=== PATIENT | female | born 1950 | race Two or more races ===

== ENCOUNTER → 2016-09-07 | Day surgery (SDC) | payer MEDICARE ==
[2016-09-07] VITALS (11 sets, daily range): BP systolic 118–145; BP diastolic 68–78
[~2016-09-07] VITALS: Ht 165.1 cm; Wt 72.6 kg
[~2016-09-07] MED LIST: Bacitracin 50000 Units Vial ONE; Betadine 10% Oint 15gm TOPIC ONE; Bupivacaine 0.25% Inj 30ml INJ ONE; Dexamethasone 4mg/ml vial ONE; DiphenhydrAMINE 50mg/ml Inj IVP PRN; DiphenhydrAMINE 50mg/ml Inj ONE; Hydromorphone 0.5mg/0.5ml inj IVP PRN; IBUPROFEN600 MG ORAL; Ketorolac 30mg Inj IV PRN; Ketorolac 30mg Inj ONE; LORazepam Inj 2mg/ml 1ml IV PRN; LR 1000ml 1,000 ML IVLG SCH; LR 1000ml ONE; Lidocaine 1% Plain 30 ml INJ ONE; Metoclopramide 10mg/2ml Inj IVP PRN; Midazolam 2mg/2ml Inj ONE; NS Irrig 1000ml ONE; Propofol 10mg/ml 20ml IV ONE; Sterile Water Irrig 1000ml IRRIG ONE; ceFAZolin sod 1 GM in NS 55 ML IVPB ONE; fentaNYL 100 mcg/2 mL IV ONE; fentaNYL 100 mcg/2 mL IV PRN
[2016-09-07 09:20] LABS: EOSINOPHILS % (AUTO) 1.5 % (0.0-3.0); LYMPHOCYTES % (AUTO) 24.5 % (20.0-45.0); MEAN CORPUSCULAR HEMOGLOBIN 30.8 PG (27.0-31.0); MEAN CORPUSCULAR HGB CONC 32.4 G/DL (32.0-36.0); MEAN CORPUSCULAR VOLUME 95 FL (80-99); MONOCYTES % (AUTO) 7.6 % (1.0-10.0); NEUTROPHILS % (AUTO) 65.5 % (45.0-75.0); PLATELET COUNT 268 K/UL (150-450); RED CELL DISTRIBUTION WIDTH 12.7 % (11.6-14.8); WHITE BLOOD COUNT 7.5 K/UL (4.8-10.8)
[2016-09-07 09:34] LABS: PROTHROMBIN TIME 9.8 SEC (9.30-11.50)
[2016-09-07 09:42] LABS: ANION GAP 13 (5-15); CALCIUM 9.5 mg/dL (8.6-10.2); CARBON DIOXIDE 29 mEQ/L (20-30); CHLORIDE 102 mEQ/L (98-107); CREATININE 0.8 mg/dL (0.5-0.9); GLOMERULAR FILTRATION RATE > 60 mL/min (>60); HEMOLYSIS 1; POTASSIUM 4.1 mEQ/L (3.4-4.9); SODIUM 144 mEQ/L (135-145)
--- NOTE | 2016-09-07 10:15 | Diagnostic Imaging Report ---
Indication: Pain Comparison: None Findings: 3 views of the left foot were obtained. No acute fractures, malalignment, erosions or periostitis are identified. Bone mineralization is within normal limits. Soft tissues are unremarkable. Impression: No acute findings
--- NOTE | 2016-09-07 11:34 | Anethesia Preoperative Eval ---
Anesthesia Pre-op PMH/ROS General Date of Evaluation: Sep 07, 2016 Anesthesiologist: Stanton ASA Score: ASA 2 Mallampati Score Class I : Soft palate, uvula, fauces, pillars visible Class II: Soft palate, uvula, fauces visible Class III: Soft palate, base of uvula visible Class IV: Only hard plate visible Mallampati Classification: Class II Surgeon: Yara Diagnosis: Left hammertoes #2,4 Surgical Procedure: Left hammertoe correction #2 and #4 Anesthesia History: none Family History: no anesthesia problems Allergies: Coded Allergies: No Known Allergies (Unverified , 09/06/16) Medications: see eMAR Past Medical History Cardiovascular: Denies: CAD, HTN, MT, arrhythmia, other, valve dz Pulmonary: Denies: COPD, DEVORAH, asthma, other Gastrointestinal/Genitourinary: Denies: CRI, ESRD, GERD, other Neurologic/Psychiatric: Denies: CVA, TIA, dementia, depression/anxiety, other Endocrine: Denies: DM, hypothyroidism, other, steroids HEENT: Denies: RUBY (L), RUBY (R), cataract (L), cataract (R), glaucoma, other Hematology/Immune: Denies: DVT, anemia, bleeding disorder, other Musculoskeletal/Integumentary: Reports: OA, Denies: DDD, DJD, RA, edema, other PSxH Narrative: C/s, right foot sx Anesthesia Pre-op Phys. Exam Physician Exam Last Vital Signs Date Time Temp Pulse Resp B/P Pulse Ox O2 Delivery O2 Flow Rate FiO2 09/07/16 08:31 98.0 70 16 143/78 99 Room Air Constitutional: NAD Cardiovascular: RRR Respiratory: CTA Airway Exam Mallampati Score: Class II MO: full ROM: full Teeth: intact Anesthesia Pre-op A/P Labs Hematology Test 09/07/16 09:00 White Blood Count 7.5 K/UL (4.8-10.8) Red Blood Count 4.90 M/UL (4.20-5.40) Hemoglobin 15.1 G/DL (12.0-16.0) Hematocrit 46.6 % (37.0-47.0) Mean Corpuscular Volume 95 FL (80-99) Mean Corpuscular Hemoglobin 30.8 PG (27.0-31.0) Mean Corpuscular Hemoglobin Concent 32.4 G/DL (32.0-36.0) Red Cell Distribution Width 12.7 % (11.6-14.8) Platelet Count 268 K/UL (150-450) Mean Platelet Volume 6.0 FL (6.5-10.1) L Neutrophils (%) (Auto) 65.5 % (45.0-75.0) Lymphocytes (%) (Auto) 24.5 % (20.0-45.0) Monocytes (%) (Auto) 7.6 % (1.0-10.0) Eosinophils (%) (Auto) 1.5 % (0.0-3.0) Basophils (%) (Auto) 1.0 % (0.0-2.0) Coagulation Test 09/07/16 09:00 Prothrombin Time 9.8 SEC (9.30-11.50) Prothromb Time International Ratio 1.0 (0.9-1.1) Activated Partial Thromboplast Time 27 SEC (23-33) Chemistry Test 09/07/16 09:00 Sodium Level 144 mEQ/L (135-145) Potassium Level 4.1 mEQ/L (3.4-4.9) Chloride Level 102 mEQ/L (98-107) Carbon Dioxide Level 29 mEQ/L (20-30) Anion Gap 13 (5-15) Blood Urea Nitrogen 10 mg/dL (7-23) Creatinine 0.8 mg/dL (0.5-0.9) Estimat Glomerular Filtration Rate > 60 mL/min (>60) Glucose Level 112 mg/dL (74-106) H Calcium Level 9.5 mg/dL (8.6-10.2) Studies Pre-op Studies: EKG - sr Risk Assessment & Plan Assessment: ASA II Plan: MAC Status Change Before Surgery: No Pre-Antibiotics Drug: Ancef 1g Given Within 1 Hr of Incision: Yes Time Given: 13:30 JUDY WARE M.D. Sep 07, 2016 11:34
--- NOTE | 2016-09-07 13:14 | Pre-Procedure Note/Attestation ---
Pre-Procedure Note/Attestation Complete Prior to Procedure Planned Procedure: left Procedure Narrative: correction of hammer toe with arthroplasty and MTP release with k-wire fixation left 2nd and 4rth toe Indications for Procedure Pre-Operative Diagnosis: hammer toe with contracted MTP left 2nd and 4rth , Attestation I attest that I discussed the nature of the procedure; its benefits; risks and complications; and alternatives (and the risks and benefits of such alternatives ), prior to the procedure, with the patient (or the patient's legal direct marketing representative). I attest that, if there was a reasonable possibility of needing a blood transfusion, the patient (or the patient's legal direct marketing representative) was given the [place] Department [employer] standardized written summary, pursuant to the Corby Enetai Blood Safety Act ([place] Health and Safety Code # 1645, as amended). I attest that I re-evaluated the patient just prior to the surgery and that there has been no change in the patient's H&P, except as documented below: HERNESTO HA DPM Sep 07, 2016 13:14
--- NOTE | 2016-09-07 14:25 | Brief Operative Note ---
Immediate Post Operative Note Operative Note Pre-op Diagnosis: hammer toe with contracted MTP left 2nd and 4rth , Procedure: arthroplasty with MPT release and k-wire fixation Post-op Diagnosis: same as pre op Surgeon: dar ha Anesthesiologist: dr Eid Anesthesia: MAC Specimen: yes Complications: none Condition: stable Estimated Blood Loss: none Drains: none Tourniquet time: 35 Implant(s) used?: Yes HERNESTO HA DPM Sep 07, 2016 14:25
--- NOTE | 2016-09-07 14:34 | Immediate Post-Op Evaluation ---
Immediate Post-Op Evalulation Immediate Post-Op Evalulation Procedure: Left hammertoe correction #2 and #4 Date of Evaluation: Sep 07, 2016 Time of Evaluation: 14:35 IV Fluids: 600 Blood Products: 0 Estimated Blood Loss: 0 Urinary Output: 0 Blood Pressure Systolic: 122 Blood Pressure Diastolic: 72 Pulse Rate: 79 Respiratory Rate: 16 O2 Sat by Pulse Oximetry: 99 Temperature (Fahrenheit): 97.2 Pain Score (1-10): 0 Nausea: No Vomiting: No Complications 0 Patient Status: awake, reacts, patent, none Hydration Status: adequate Drug: Ancef 1g Given Within 1 Hr of Incision: Yes Time Given: 13:30 JUDY WARE M.D. Sep 07, 2016 14:34
--- NOTE | 2016-09-07 16:35 | Diagnostic Imaging Report ---
Indication: Pain Comparison: None Findings: 3 views of the left foot were obtained. K wire pinning of the second interphalangeal and metatarsophalangeal joint and the fourth interphalangeal joints demonstrated. Impression: Postop changes
--- NOTE | 2016-09-07 18:11 | 48 Hour Post Anesthesia Eval ---
Post Anesthesia Evaluation Procedure: Left hammertoe correction #2 and #4 Date of Evaluation: Sep 07, 2016 Time of Evaluation: 16:10 Blood Pressure Systolic: 145 0: 72 Pulse Rate: 71 Respiratory Rate: 18 Temperature (Fahrenheit): 98.1 O2 Sat by Pulse Oximetry: 99 Airway: patent Nausea: No Vomiting: No Pain Intensity: 1 Hydration Status: adequate Cardiopulmonary Status: at baseline Mental Status/LOC: patient returned to baseline Post-Anesthesia Complications: 0 Follow-up care needed: ready to discharge JUDY WARE M.D. Sep 07, 2016 18:11
--- NOTE | 2016-09-08 20:48 | Pre-op HX & Phy Repo 2 SIG ---
DATE OF ADMISSION: 09/07/2016 DATE OF SURGERY: 09/07/2016 at [facility]. HISTORY OF PRESENT ILLNESS: This is a 66-year-old female with painful contracted joint on the left foot. Second and the fourth toe are affected. The contractions have been causing pain and discomfort to the patient for the past few years. She has tried numerous conservative treatment measurement including padding, offloading, shoe gear modification, activity modification as well as OTC orthotics, but continues to experience daily pain. She reports no recent illnesses. No recurrent nausea, vomiting, fever, chills, or shortness of breath. PAST MEDICAL HISTORY: The patient denies. PAST SURGICAL HISTORY: No pertinent findings. MEDICATIONS: None. ALLERGIES: No known drug allergies. SOCIAL HISTORY: Denies alcohol, tobacco, or illicit drug use. FAMILY HISTORY: No pertinent findings. PHYSICAL EXAMINATION: VITAL SIGNS: Temperature is 98.2 degrees, pulse 61, respiratory rate 16, blood pressure is 130/80, and O2 is 98% saturation on room temperature. DERMATOLOGICAL: No open lesion. Mild hyperkeratotic tissue at the PIPJ joint of the second and the fourth toe. NEUROLOGICAL: Sensation intact to light touch. VASCULAR: Dorsalis pedis and posterior artery are palpable with no edema or erythema noted. MUSCULOSKELETAL: Contraction of the second and the fourth interphalangeal joints is noticed causing a hammering of the second and the fourth toe with contraction at the MTP joint as well. Muscle strength is full noticed bilaterally. LABORATORY DATA: Has been checked. ASSESSMENT AND PLAN: This is a 66-year-old female with left foot pain progressively worse over the past few years. The patient has tried numerous conservative measurements, however, she is still experiencing daily pain. Recommended surgery as a next step in management. The risks, benefits, and alternative were discussed with the patient in detail who understands and would like to proceed with surgical intervention. All patient's questions and concerns have been answered and the patient is scheduled to have surgery today 09/07/2016 at [facility]. Seven Livingston D.P.M. DR: ZURI JOB#: [id number] CC:
--- NOTE | 2016-09-08 22:18 | Operative Note - Dictated ---
DATE OF OPERATION: 09/07/2016 SURGEON: Seven Livingston D.P.M. PREOPERATIVE DIAGNOSIS: Hammertoe with contracture of the MTP joint second and the fourth left. POSTOPERATIVE DIAGNOSIS: Hammertoe with contracture of the MTP joint second and the fourth left. TITLE OF PROCEDURE: Correction of hammertoe second and fourth left with arthroplasty and MTP release with K-wire fixation. ANESTHESIOLOGIST: Dr. Eid. HEMOSTASIS: Pneumatic ankle tourniquet set to 250 mmHg. ESTIMATED BLOOD LOSS: Less than 5 mL. MATERIAL USED: A 3-0 Vicryl, 4-0 Vicryl, 5-0 nylon, and 0.45 K-wire. Injectable: A 10 mL consisting of 1:1% mixture of 0.25% Marcaine plain and 1% lidocaine was injected into the left foot in the operating area that included second and the fourth MTPJ joint. Postoperatively, a 2 mL of 4 mg/mL dexamethasone and 6 mL of 0.25% Marcaine was injected. Pathology bone was resected from the proximal phalanx of the fourth and the second on the left was sent for pathology and further study. DRESSING: Incision was covered with Xeroform, Betadine ointment, 4 x 4 Kerlix, and Coban. COMPLICATION: None. CONDITION: Stable. Description Of The Procedure: The patient was brought into the operating room and then was assisted onto the operating table in supine position. She was well padded to avoid area of excessive pressure. The patient was then given 1 g of Ancef. Before they started surgery, a time-out was performed. Cotton padding and pneumatic 18-inch ankle tourniquet was then placed in the patient left ankle. Following intravenous sedation, a local anesthetic block was administered to the left foot using 10 mL of 1:1 mixture of 0.25% plain Marcaine and 1% plain lidocaine. The foot was then scrubbed, prepped, and draped in the usual aseptic manner. Attention was directed to the left foot. An Esmarch bandage was then utilized to exsanguinate the patient's left foot and the pneumatic ankle tourniquet was then inflated to 250 mmHg. A local anesthesia was checked and the patient did not react. At this time, attention was directed to the second toe where a linear incision approximately 2 cm was made over the deformity of the proximal PIPJ joint and a second incision was made causing an elliptical excision of the skin that included the quad. The incision was deepened through sharp and blunt dissection down to the level of capsule. A transverse capsulotomy was performed. All were resected. At this time, the capsule was retracted from the head of the proximal phalanx. The head of the proximal phalanx, using a sagittal saw was removed approximately 3 to 4 mm. At this time, continuous contraction of the proximal phalanx was noticed and percutaneous incision was made over the MTP joint and a release percutaneously was done that included the extensor tendon. Contraction was noticed to be much more decreased and toe was found to be in good alignment. At this time, using a 0.45 K-wire, the K-wire was on the base of the middle phalanx down to the tip of the toenail and was retracted back into the head of the proximal phalanx across the osteotomy site. The incision site was then copiously lavaged. The K-wire that was extending on the tip of the toe was bent and cut and capped. At this time, the tendon of the extensor was approximated with using 3-0 Vicryl and it was closed. Attention was directed to the subcutaneous tissue where using a 4-0 Vicryl was closed. Subcutaneously, the skin was closed using 5-0 nylon. The incision site was then injected with approximately 2 mL of dexamethasone a combination with 6 mL of Marcaine. The incision was then dressed using Betadine ointment, Adaptic, 4 x 4 gauze, and Paddy. Attention was then directed to the fourth toe on the left with exact "procedure" was done. After the incision site on the fourth was ruled out and the tourniquet was then deflated and immediate hyperemia was noted to digits 1 through 5. The patient tolerated the surgery and anesthesia well without any complication. She was then transferred to the operating care unit and states no pain with full perfusion to the tip of the toe. The patient was then reminded to take ibuprofen and [place] and antibiotic as directed. She was also instructed to keep her leg elevated and to keep dressing clean, dry, and intact. Radiograph crutches and postoperative shoe were ordered. The patient was able to partially bear weight on the left heel, but was advised to minimize standing and ambulation for the next 24 hours. The patient will be discharged once she is medically cleared by the anesthesiologist. Follow up with Dr. Seven Livingston in the next clinical hours. Seven Livingston D.P.M. DR: ZURI JOB#: [id number] CC:
--- NOTE | 2016-09-09 14:32 | Cardiology Report ---
APPROVED REPORT EKG Measurement Heart [id number] Normal sinus rhythm Normal ECG
== END | disposition home or self-care (01) ==
LOC: SUR 07:39
DX: M20.42 Other hammer toe(s) (acquired), left foot (principal); M24.575 Contracture, left foot; M19.90 Unspecified osteoarthritis, unspecified site
CPT/HCPCS: 28270; 28285; 36415; 73630; 80048; 85025; 85610; 85730; 93005; 97161; G8978; G8979; G8980; J1100; J1200; J1885; J2001; J2250; J2704; J3010; J3490; J7120; 94003; 94150